=== PATIENT | female | born 1950 | race Caucasian/White ===

== ENCOUNTER 2024-04-20 09:05 | Outpatient (CLI) | payer MEDICARE, BC, SELFPAY | END 2024-04-20 09:06 | disposition home or self-care (01) | LOC: AMB 04-24 14:19 | PROVIDERS: PCP Student in an Organized Health Care Education/Training Program; Visit Provider Family Medicine | DX: T42.4X2A Poisoning by benzodiazepines, intentional self-harm, initial encounter (principal); Y92.009 Unspecified place in unspecified non-institutional (private) residence as the place of occurrence of the external cause | CPT/HCPCS: A0425; A0427; A0429 ==

== ENCOUNTER 2024-04-20 09:30 | Emergency (ER) | payer MEDICARE, BC, SELFPAY ==
[2024-04-20] VITALS (57 sets, daily range): BP systolic 84–133; BP diastolic 56–93; PULSE 51–76; RESP 14–22; TEMP 36.4; O2SAT 95–100; BMI 23.5
--- NOTE | 2024-04-20 09:44 | ED_ITS ---
HPI - General Adult General Time Seen by Provider: 09:44 Date Seen: 04/20/24 Chief complaint: Psychiatric Problem/Disorder Stated complaint: Possible overdose Time Seen by Provider: 04/20/24 09:34 Source: patient, RN notes reviewed and old records reviewed Mode of arrival: EMS Limitations: no limitations History of Present Illness HPI narrative: Shanel is a 74-year-old female with history of depression, failed dental implants, AFib with RVR who is brought to the emergency room by EMS for evaluation of overdose of benzodiazepine. Patient took approximately 20 mg of Klonopin per nursing report who calculated the number of pills which had been cut in half in her bottle. Precious although sleepy was able to state twice that she took 40 tablets of her Klonopin. She does admit it was a suicide attempt. Her Jerad arrives and he notes that Precious has been in a downward spiral for approximately 2 years with frustrations over her health, dental implants that did not work and restriction urge to soft foods and liquids only. She had made some suicidal statements at home. She does have a psychiatrist and the psychiatrist states that he had wanted Shanel to go to the hospital and have in patient care yesterday. Shanel denies any pain at this time although she had told the nurse earlier that her back hurt. States that she fell out of bed this morning and that is what woke her up and made her call 911. Shanel is not answering when exactly she took the pills. She denies chest pain or shortness of breath. She has not had a recent cough or cold. Related Data Allergies Allergy/AdvReac Type Severity Reaction Status Date / Time sorbitol Allergy Verified 04/20/24 09:44 Review of Systems Status of ROS: Reports: unobtainable due to mental status Const: Denies: fever or chills PFSH PFSH Social History Smoking Status: Smoker, status unknown Exam Narrative: Exam Narrative: Patient with a GCS 13. She does open her eyes to touch and voice. She is consistent with her answers in regards to pain and the amount of pills that she took. She quickly falls back asleep. She has a protruding lower jaw with implants on the mandible. She is protecting her airway at this time and breathing is normal. Her head is atraumatic normocephalic. Neck is without midline tenderness although again she is very sleepy. Heart with regular rate and rhythm and lungs are clear bilaterally. Abdomen soft. Palpation down thoracic and lumbar spine without pain. I do not note any bruising or ecchymos is on the back. Lower extremities without edema. She is moving all of her extremities. Const: Vital Signs, click to edit/add: Vital Signs - 24 hr 04/20/24 16:05 04/20/24 16:15 04/20/24 16:17 Pulse Rate 61 67 66 Blood Pressure 93/58 L 85/56 L Pulse Oximetry 97 95 95 04/20/24 16:18 04/20/24 16:30 04/20/24 16:31 Pulse Rate 65 64 66 Blood Pressure 88/56 L 87/58 L Pulse Oximetry 95 95 95 04/20/24 16:45 04/20/24 16:47 04/20/24 17:00 Pulse Rate 66 66 64 Blood Pressure 87/59 L Pulse Oximetry 95 95 96 04/20/24 17:02 04/20/24 17:15 04/20/24 17:17 Pulse Rate 62 62 62 Blood Pressure 102/65 101/62 Pulse Oximetry 95 99 98 04/20/24 17:18 04/20/24 17:32 04/20/24 17:47 Pulse Rate 62 Blood Pressure 118/71 84/59 L Pulse Oximetry 99 04/20/24 17:51 04/20/24 18:00 04/20/24 18:02 Pulse Rate 65 67 66 Blood Pressure 92/59 L Pulse Oximetry 98 98 98 04/20/24 18:03 04/20/24 18:15 04/20/24 18:17 Pulse Rate 66 67 66 Blood Pressure Pulse Oximetry 98 97 97 04/20/24 18:18 04/20/24 18:30 04/20/24 18:32 Pulse Rate 67 66 65 Blood Pressure Pulse Oximetry 97 97 97 04/20/24 18:45 04/20/24 18:46 Pulse Rate 62 57 L Blood Pressure 105/66 Pulse Oximetry 98 97 Documenting provider has reviewed patient's vital signs: yes Course Course ED Course: Precious presents with suicidal gesture and overdose of benzodiazepines. Poison Control is consulted. At this time they recommend 4-24 hours of medical monitoring. Patient has diagnostic cardiac sonographer IV in place. Will give 500 mL normal saline. Given probability that Precious has been on benzodiazepines for an extended. I do not want to employ the use of flumazenil as I do think this would place her at increased risk for seizure. Rather my plan is to RSI if Precious's respirations become worrisome. EKG reassuring. Will check labs to include CBC, comprehensive panel, CRP, salicylates, acetaminophen, alcohol, urinalysis, drug screen, magnesium. Shanel has her here at this time. Her daughters then arrived. All appropriately concerned. All very loving and supportive. Reevaluation(s) Reevaluation #1: Precious noted to have a sodium of 121. Patient had received 500 mL bolus upon arrival and then switched to 125 mL an hour while awaiting 2nd sodium. Second sodium was delayed because of inability to draw blood. Result is pending at this time.. Plan at this time is to hopefully be able to transfer to [facility] were Precious typically receives her care. This because they would also be able to provide definitive psychiatric care. If that is not possible will consider admission to our hospital. Reevaluation #2: Shanel noted to be waking up. Trying to pull out her IV stating that she wants to go home. I did try to talk to her. Ultimately I do feel she needed some sedation and ordered Zyprexa 2.5 mg IV. This seems to have helped. Reevaluation #3: Significant discussion over a matter of hours and attempts to transfer cath to [facility]. [facility] is on divert and [facility] initially accepted patient but wanted 2nd sodium. Because it is now 126 they are declining acceptance. We then tried to call [facility] which declined. [facility] was initially an 8 hour delay and [facility] did accept but we are now receiving a call back from [facility] that they would be able to take the patient at 1900 hours. [facility] notes that a long-term psychiatric admission would need to be transferred to [facility] after stabilization medically. Because [facility] does have an inpatient psychiatric unit and no further transfer would be needed I elected to have patient go to [facility] for family convenience. I did consider giving patient fluids as her blood pressures were dropping to 88- 90 systolic. However now her blood pressures are rebounded and are 101 systolic. If needed did discuss with hospitalist regarding fluids and they are in agreement of using D5 and half normal saline or D5 alone, 250 mL bolus. Vital Signs Vital signs: Initial Vital Signs Pulse Rate 70 04/20/24 09:34 Respiratory Rate 18 04/20/24 09:34 Blood Pressure 120/78 04/20/24 09:34 Blood Pressure Mean 92 04/20/24 09:34 Pulse Oximetry 97 04/20/24 09:34 Vital Signs Pulse Rate 70 04/20/24 09:34 Respiratory Rate 18 04/20/24 09:34 Blood Pressure 120/78 04/20/24 09:34 Pulse Oximetry 97 04/20/24 09:34 Temperature 97.6 F 04/20/24 09:40 Pulse Rate 57 L 04/20/24 18:46 Respiratory Rate 14 04/20/24 14:02 Blood Pressure 105/66 04/20/24 18:46 Pulse Oximetry 97 04/20/24 18:46 Oxygen Delivery Method Room Air 04/20/24 12:19 Medications Administered Medications: Discontinued Medications Generic Name Dose Route Start Last Admin Trade Name Freq PRN Reason Stop Dose Admin Sodium Chloride 500 mls @ 500 mls/hr 04/20/24 10:01 04/20/24 11:34 0.9 % Sodium Chloride 500 Ml IV 04/20/24 11:00 Not Given .Q1H ONE Sodium Chloride 1,000 mls @ 125 mls/hr 04/20/24 11:24 04/20/24 15:54 0.9 % Sodium Chloride 1000 Ml IV Infused .Q8H CATHY Infusion Dextrose/Sodium Chloride 1,000 mls @ 125 mls/hr 04/20/24 18:39 04/20/24 19:14 5 % Dextrose/0.45% Sod Chlor IV Not Given .Q8H CATHY Olanzapine 2.5 mg 04/20/24 19:07 04/20/24 12:30 Olanzapine 5 Mg/Ml Inj IVP 04/20/24 19:08 2.5 mg ONCE ONE Administration Medical Decision Making MDM Narrative Medical decision making narrative: 1. Benzodiazepine overdose-poison control contacted. Suggest monitoring for 24 hours. Patient noted to have improvement over the subsequent hours after arrival. Family tells me that patient has been on benzodiazepines and Klonopin for quite some time. Recent attempts at tapering per her psychiatrist. Because of this and risk for seizure with abrupt withdrawal did not use flumazenil. Also caution that she should be a taper rather than discontinuation of this medication going forward. 2. Suicidal gesture-. According to family at least 2 years and increasing depression mainly around failed dental implants, inability to eat. Family stating they do not want her to come home until she has adequate evaluation for mental the health reasons. I would support this. Episodes of crying and in the ED and clearly unhappy with her medical issues. Attempts at departure and pulling off her stickers and removing her IV. I did have to give her Zyprexa 2.5 mg and since that time she has been sleeping. 3. Hyponatremia -initial sodium 121. Received 500 mL normal saline and then 125 per hour.. Patient tells me that she has not been eating for the past 3 weeks and thus I am concerned about a quick correction as this may be a chronic sodium level. Addendum: Sodium now at 126 after 1 L normal saline. Therefore will hold fluids at this time. Transient hypotension. However blood pressure is now up at 105 systolic. Will continue to monitor and if fluids are needed will use D5 W or D5 half normal saline 250 mL total for a bolus. 4. Nutritional concerns-failed dental implants. 5. Disposition-ground ambulance BLS transfer to [facility] in the [facility]. Dr. Ken accepting. Medical Records Medical records reviewed: Yes I reviewed the patient's medical records Medical records narrative: Able to obtain [facility] and [place] records in regards to this patient. Lab Data Lab results reviewed: Yes I reviewed the patient's lab results Labs: Lab Results 04/20/24 04/20/24 04/20/24 Range/Units 09:55 10:40 15:15 WBC 10.83 (4.50-11.00) K/uL RBC 4.85 (4.00-5.20) m/uL Hgb 13.7 (12.0-16.0) gm/dL Hct 39.4 (33.0-51.0) % MCV 81 (80-100) fL MCH 28 (26-34) pg MCHC 35 (32-36) gm/dL RDW Coeff of Adryan 12.2 (11.5-15.5) % Plt Count 268 (140-440) K/uL Neut % (Auto) 70.8 (42.0-72.0) % Lymph % (Auto) 17.6 L (20-44) % [place] % (Auto) 8.9 (0.0-11.0) % Eos % (Auto) 1.5 (0.0-7.0) % Baso % (Auto) 0.6 (0.0-3.0) % Neut # (Auto) 7.67 H (1.7-7.0) K/uL Lymph # (Auto) 1.90 (0.90-2.90) K/uL [place] # (Auto) 1.00 H (0.00-0.90) K/UL Eos # (Auto) 0.16 (0.00-0.50) K/uL Baso # (Auto) 0.06 (0.00-0.30) K/uL Abs Immat Gran (auto) 0.07 (0.00-0.30) K/uL Imm/Tot Granulo (auto) 0.6 % Sodium 121 L* 126 L (135-149) mmol/L Potassium 3.7 (3.6-5.1) mmol/L Chloride 86 L (96-114) mmol/L Carbon Dioxide 21 (20-32) mmol/L Anion Gap 14 (7-15) mEq/L BUN 8 (7-30) mg/dL Creatinine 0.8 (0.5-1.5) mg/dL Estimated Creat Clear 47.27 Estimated GFR 77 ml/min Glucose 93 (60-115) mg/dL Calcium 9.9 (8.4-10.6) mg/dL Total Bilirubin 1.6 H (0.1-1.5) mg/dL AST 24 (12-35) U/L ALT 18 (4-35) U/L Alkaline Phosphatase 76 (40-150) U/L C-Reactive Protein < 0.5 L (0.5-1.0) mg/dL Total Protein 8.0 (6.0-8.3) g/dL Albumin 4.9 (3.3-5.0) g/dL Salicylates < 1.0 L (1.0-10) mg/dL Acetaminophen < 10.0 L (10.0-30.0) ug/mL Ethyl Alcohol < 0.01 L (0.01-0.03) % Imaging Data CT scan - head: Attestation: I have reviewed the pertinent imaging results. My impression: I do not note any evidence of intracranial bleed. Radiologist's impression: Generalized volume loss and changes of chronic small vessel ischemic disease, as before. Intracranial atherosclerosis. There is no mass effect or midline shift. No hydrocephalus. No CT evidence of acute hemorrhage or infarction. No abnormal extra-axial fluid collection. Bone windows show no acute calvarial fracture. Paranasal sinuses and orbits as imaged are unremarkable. IMPRESSION: No acute intracranial abnormality. Cervical spine CT: Attestation: I have reviewed the pertinent imaging results. My impression: No obvious fracture Radiologist's impression: No acute fracture, malalignment or significant bony central canal compromise. Bone demineralization. [id number] degenerative changes with disc space narrowing, disc osteophyte complex formation, uncovertebral hypertrophy and facet arthropathy. No additional osseous abnormality. Carotid calcifications. Paraspinal soft tissues elsewhere as imaged are unremarkable. Visualized lung apices are clear. IMPRESSION: No acute cervical spine fracture. Chest x-ray: Attestation: I have reviewed the pertinent imaging results. My impression: No obvious mediastinal widening or infiltrate Radiologist's impression: Technique: AP view of the chest. Comparison: None. Findings: Low lung volumes. Mild elevation of the right hemidiaphragm. Normal cardiomediastinal silhouette. Risf-fj-xnbwhthw biapical pleural-parenchymal scarring. No focal consolidation, pleural effusions, or visualized pneumothorax. 1.2 centimeter nodular opacity along the medial right lower lobe. Osteopenia. Impression: 1. No acute cardiopulmonary disease. 2. 1.2 centimeter nodular opacity along the medial right lower lobe. Consider outpatient chest CT for further evaluation. Thoracolumbar x-ray: Attestation: I have reviewed the pertinent imaging results. My impression: I do not note any obvious fracture Radiologist's impression: Osteopenia. Ingb-wv-erpfaqhm rightward curvature of the mid lumbar spine. Moderate multilevel degenerative changes of the visualized spine. No acute displaced fracture or malalignment. Moderate vascular calcification. Impression: No acute displaced fracture or malalignment. ECG Data Attestation: I personally reviewed and interpreted this ECG as follows: Interpretation: EKG by my read shows sinus rhythm at a rate of 69. I do not note any acute ST or T-wave changes. QT and UT intervals within normal limits. Critical Care Time Critical Care Time Critical Care Time: Yes (30) Attestation: The patient required my highest level preparedness to intervene emergently and I personally spent this critical care time directly and personally managing the patient. This critical care time included: Obtaining a history; Examining the patient; Pulse oximetry; Ordering and reviewing of studies; Arranging urgent treatment with development of a management plan; Evaluation of patients response to treatment; Frequent reassessment discussions with other providers. This critical care time was performed to assess and manage the high probability of imminent life-threatening deterioration that could result in multiorgan failure. It was exclusive of separate billable procedures and treating other patients and teaching time. Total Critical Care Time in Minutes: 45 Discharge Plan Discharge Clinical Impression: Suicide gesture, Hyponatremia, Long-term current use of benzodiazepine Benzodiazepine overdose Qualifiers: Encounter type: initial encounter Injury intent: intentional self-harm Qualified Code(s): T42.4X2A - Poisoning by benzodiazepines, intentional self- harm, initial encounter Patient Disposition: [facility] Discharge Location: [facility] Condition: Stable
[2024-04-20] MEDS: 0.9 % SODIUM CHLORIDE 1000 ml 1,000 ML 125 ML IV (10:00)
--- NOTE | 2024-04-20 10:01 | CRLHL7_ITS ---
For Patients: As a result of the Century Cures Act, medical imaging exams and procedure reports are released immediately into your electronic medical record. You may view this report before your referring provider. If you have questions, please contact your health care provider. Indication: Fall Technique: AP view of the chest. Comparison: None. Findings: Low lung volumes. Mild elevation of the right hemidiaphragm. Normal cardiomediastinal silhouette. Mzzi-sj-wuktfvow biapical pleural-parenchymal scarring. No focal consolidation, pleural effusions, or visualized pneumothorax. 1.2 centimeter nodular opacity along the medial right lower lobe. Osteopenia. Impression: 1. No acute cardiopulmonary disease. 2. 1.2 centimeter nodular opacity along the medial right lower lobe. Consider outpatient chest CT for further evaluation. Dictated by Yogi Pineda MD @ 04/20/2024 11:47:43 AM (Electronically Signed)
--- NOTE | 2024-04-20 10:01 | CRLHL7_ITS ---
For Patients: As a result of the Century Cures Act, medical imaging exams and procedure reports are released immediately into your electronic medical record. You may view this report before your referring provider. If you have questions, please contact your health care provider. INDICATION: Fall. TECHNIQUE: CT head without contrast. COMPARISON: CT head without contrast 05/29/2021. FINDINGS: Generalized volume loss and changes of chronic small vessel ischemic disease, as before. Intracranial atherosclerosis. There is no mass effect or midline shift. No hydrocephalus. No CT evidence of acute hemorrhage or infarction. No abnormal extra-axial fluid collection. Bone windows show no acute calvarial fracture. Paranasal sinuses and orbits as imaged are unremarkable. IMPRESSION: No acute intracranial abnormality. Dictated by Bong Sanchez MD @ 04/20/2024 11:25:39 AM Please note that all CT scans at this facility use dose modulation, iterative reconstruction, and/or weight-based dosing when appropriate to reduce radiation dose to as low as reasonably achievable. Dictated by: Bong Sanchez MD @ 04/20/2024 11:25:44 (Electronically Signed)
--- NOTE | 2024-04-20 10:01 | CRLHL7_ITS ---
For Patients: As a result of the Cures Act, medical imaging exams and procedure reports are released immediately into your electronic medical record. You may view this report before your referring provider. If you have questions, please contact your health care provider. Indication: Fall Technique: Two views of the thoracolumbar spine. Comparison: None. Findings: Osteopenia. Ymlz-za-rvbdvvuk rightward curvature of the mid lumbar spine. Moderate multilevel degenerative changes of the visualized spine. No acute displaced fracture or malalignment. Moderate vascular calcification. Impression: No acute displaced fracture or malalignment. Dictated by Yogi Pineda MD @ 04/20/2024 11:49:28 AM (Electronically Signed)
--- NOTE | 2024-04-20 10:01 | CRLHL7_ITS ---
For Patients: As a result of the Cures Act, medical imaging exams and procedure reports are released immediately into your electronic medical record. You may view this report before your referring provider. If you have questions, please contact your health care provider. INDICATION: Fall. TECHNIQUE: CT cervical spine without contrast. COMPARISON: None. FINDINGS: No acute fracture, malalignment or significant bony central canal compromise. Bone demineralization. Zdze-xy-jhdtwuts degenerative changes with disc space narrowing, disc osteophyte complex formation, uncovertebral hypertrophy and facet arthropathy. No additional osseous abnormality. Carotid calcifications. Paraspinal soft tissues elsewhere as imaged are unremarkable. Visualized lung apices are clear. IMPRESSION: No acute cervical spine fracture. Dictated by Bong Sanchez MD @ 04/20/2024 11:29:54 AM Please note that all CT scans at this facility use dose modulation, iterative reconstruction, and/or weight-based dosing when appropriate to reduce radiation dose to as low as reasonably achievable. Dictated by: Bong Sanchez MD @ 04/20/2024 11:30:21 (Electronically Signed)
[2024-04-20 10:45] LABS: Albumin* 4.9 g/dL (3.3-5.0); Chloride* 86 mmol/L (96-114)
[2024-04-20 10:46] LABS: Potassium* 3.7 mmol/L (3.6-5.1)
[2024-04-20 10:48] LABS: Alkaline Phosphatase* 76 U/L (40-150); Anion Gap 14 mEq/L (7-15); Aspartate Amino Transferase* 24 U/L (12-35); Bilirubin Total* 1.6 mg/dL (0.1-1.5); Carbon Dioxide* 21 mmol/L (20-32); Creatinine* 0.8 mg/dL (0.5-1.5); Est. Creatinine Clearance* 47.27; Estimated Glomerular Filt Rate 77 ml/min
[2024-04-20 10:49] LABS: Alanine Aminotransferase* 18 U/L (4-35); Blood Urea Nitrogen* 8 mg/dL (7-30); Calcium* 9.9 mg/dL (8.4-10.6); Glucose* 93 mg/dL (60-115)
[2024-04-20 10:51] LABS: Basophils Absolute Auto 0.06 K/uL (0.00-0.30); Basophils Percent Auto 0.6 % (0.0-3.0); Eosinophils Absolute Auto 0.16 K/uL (0.00-0.50); Eosinophils Percent Auto 1.5 % (0.0-7.0); Hematocrit 39.4 % (33.0-51.0); Hemoglobin* 13.7 gm/dL (12.0-16.0); Immature Granulocytes Abs Auto 0.07 K/uL (0.00-0.30); Immature Granulocytes Pct Auto 0.6 %; Lymphocytes Percent Auto 17.6 % (20-44); Mean Corpuscular HGB Conc 35 gm/dL (32-36); Mean Corpuscular Hemoglobin 28 pg (26-34); Mean Corpuscular Volume 81 fL (80-100); Monocytes Percent Auto 8.9 % (0.0-11.0); Neutrophils Absolute Auto 7.67 K/uL (1.7-7.0); Neutrophils Percent Auto 70.8 % (42.0-72.0); Platelet Count* 268 K/uL (140-440); RDW Coefficient of Variation % 12.2 % (11.5-15.5); Red Blood Count 4.85 m/uL (4.00-5.20); White Blood Count* 10.83 K/uL (4.50-11.00)
[2024-04-20 10:54] LABS: Slide Review Reflex No
[2024-04-20 10:56] LABS: Acetaminophen* < 10.0 ug/mL (10.0-30.0); C Reactive Protein* < 0.5 mg/dL (0.5-1.0); Ethanol* < 0.01 % (0.01-0.03); Salicylate* < 1.0 mg/dL (1.0-10); Sodium* 121 mmol/L (135-149)
[2024-04-20] MEDS: OLANZapine 5 MG/ML inj 2.5 MG IVP (12:30)
[2024-04-20 15:34] LABS: Sodium* 126 mmol/L (135-149)
== END 2024-04-20 19:32 | disposition short-term general hospital (02) ==
PROVIDERS: Family Medicine; Emergency Provider Student in an Organized Health Care Education/Training Program; PCP Student in an Organized Health Care Education/Training Program
DX: T42.4X2A Poisoning by benzodiazepines, intentional self-harm, initial encounter (principal); R45.851 Suicidal ideations; E87.1 Hypo-osmolality and hyponatremia
CPT/HCPCS: 36415; 70450; 71045; 72080; 72125; 80053; 80143; 80179; 80306; 81001; 82077; 84295; 85025; 86140; 94761; 99285; 99291; J7030

== ENCOUNTER 2024-04-20 19:20 | Outpatient (CLI) | payer MEDICARE, BC, SELFPAY | END 2024-04-20 19:21 | disposition home or self-care (01) | LOC: AMB 05-05 12:45 | PROVIDERS: PCP Student in an Organized Health Care Education/Training Program; Visit Provider Student in an Organized Health Care Education/Training Program | DX: R45.851 Suicidal ideations (principal); E87.1 Hypo-osmolality and hyponatremia; Z79.899 Other long term (current) drug therapy | CPT/HCPCS: A0425; A0429 ==